=== PATIENT | female | born 1960 | race Two or more races ===

== ENCOUNTER 2020-09-26 18:59 | Emergency (ER) | payer OTHER ==
[~2020-09-26] VITALS: Ht 160 cm; Wt 62.6 kg
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
--- NOTE | 2020-09-26 19:29 | NUR ---
XRAY AT BEDSIDE
[2020-09-26] MEDS ORDERED: TRAM50TA2 PO (20:04)
[2020-09-26] MEDS ORDERED: IBUP-1955 PO (20:04)
--- NOTE | 2020-09-26 20:17 | NUR ---
Patient discharged to home in stable condition. Written and verbal after care instructions given. Patient verbalizes understanding of instruction. PT ambulatory with a steady gait
[2020-09-26 20:21] VITALS: BP 136/77
== END 2020-09-26 20:17 | disposition home or self-care (01) ==
LOC: ER 19:05
DX: S89.82XA Other specified injuries of left lower leg, initial encounter (principal); X50.1XXA Overexertion from prolonged static or awkward postures, initial encounter; Y93.89 Activity, other specified; Y92.89 Other specified places as the place of occurrence of the external cause; Y99.8 Other external cause status
CPT/HCPCS: 73564-TC